=== PATIENT | female | born 1995 | race American Indian/Alaskan Native ===

== ENCOUNTER 2020-06-15 04:23 | Emergency (ER) | payer MEDICAID, OTHER ==
[2020-06-15] MEDS ORDERED: Sodium Chloride 0.9% 80 ML IV STA (04:45)
[2020-06-15] MEDS ORDERED: Iopamidol 612 MG/ML 100 ML Bottle IV STA (04:45)
--- NOTE | 2020-06-15 04:57 | EDM.PDOC ---
ED HPI GENERAL MEDICAL PROBLEM - General Chief Complaint: Back Pain or Injury Stated Complaint: ACCIDENT [facility]IA [facility] Time Seen by Provider: 06/15/20 04:23 Source of Information: Reports: Patient, EMS History Limitations: Reports: Intoxication - History of Present Illness INITIAL COMMENTS - FREE TEXT/NARRATIVE: patient presents via EMS from [place] due to fall from [facility]--initial ht reported as 16 feet then second report as 10-12 ft. she reportedly fell, tumbling off deck hitting concrete below. recieved call from local PD that state she was not a fall but pushed off deck. initially had LOC/had to be awakened by people on scene. upon initial EMS evaluation and during transportation had no sensation / movement below the waist but low back/lumbar pain was noted. she arrived with no back board or c-collar (per EMS c-collar was attempted but she refused to keep on). she has strong smell of alcohol - admits to drinking 1/2 case beer. she also had initial sternal pain for EMS. was crying/tearful (likely secondary to pain & intoxication) she is calming down after arrival to ER PMH--denies Meds--denies NKDA tob--denies but VAPES EtOH--yes Drugs--denies Onset: Today, Sudden - Related Data Allergies Allergy/AdvReac Type Severity Reaction Status Date / Time No Known Allergies Allergy Verified 06/15/20 05:25 Home Meds: Home Meds NK [No Known Home Meds] 06/15/20 [History] Review of Systems - Review of Systems Review Of Systems: Comprehensive ROS is negative, except as noted in HPI. Constitutional: Reports: No Symptoms Eyes: Reports: No Symptoms Ears: Reports: No Symptoms Nose: Reports: No Symptoms Mouth/Throat: Reports: No Symptoms Respiratory: Reports: No Symptoms Cardiovascular: Reports: No Symptoms GI/Abdominal: Reports: No Symptoms Genitourinary: Reports: No Symptoms Musculoskeletal: Reports: Back Pain, Other Skin: Reports: No Symptoms Neurological: Reports: Numbness, Paresthesia, Weakness, Other (intoxicated) Psychiatric: Reports: Other (intoxicated) ED EXAM, GENERAL - Physical Exam Exam: See Below Exam Limited By: Intoxication General Appearance: Alert, Anxious, Moderate Distress Eye Exam: Bilateral Eye: EOMI, Normal Inspection, PERRL Ears: Normal External Exam, Normal Canal, Hearing Grossly Normal, Normal TMs Nose: Normal Inspection, Normal Mucosa, No Blood Throat/Mouth: Normal Inspection, Normal Lips, Normal Teeth, Normal Oropharynx, No Airway Compromise Head: Atraumatic, Normocephalic Neck: Normal Inspection, Non-Tender, Other (c-collar placed with c-spine immobilization upon arrival to ER) Respiratory/Chest: No Respiratory Distress, Lungs Clear, Normal Breath Sounds, Chest Non-Tender Cardiovascular: Normal Peripheral Pulses, Regular Rate, Rhythm, No Edema, No Murmur Peripheral Pulses: 2+: Radial (L), Radial (R), Dorsalis Pedis (L), Dorsalis Pedis (R) GI/Abdominal: Normal Bowel Sounds, Soft, Non-Tender, Other (obese) (Female) Exam: Normal External Exam (noted during mir placement) Extremities: Normal Inspection, Non-Tender, No Pedal Edema, Normal Capillary Refill, Other (no palpatory tenderness to shoulder girdle/arms, palpatory pelvic tenderness/neg laxity, initial exam decreased/no sensation to lower extremities, no movement of feet when requested; repeat exam after initial exam with movement to B-LE, able to discern gross touch B-LE to bottom of feet; when taken to CT scanner was bending legs spontaneously at knees) Neurological: Alert, Oriented, Memory Loss Recent Events (she is unsure how accident/fall occurred per her report), Other (intoxicated) Psychiatric: Anxious, Tearful, Other (intoxicated) Skin Exam: Warm, Dry, Intact, Normal Color, No Rash Lymphatic: No Adenopathy Course - Vital Signs Text/Narrative:: 0410--EMS arrival, trauma code called and all at bedside 0416--initial vitals obtained, see trauma flow sheet/stable 0430--call placed to [facility] for trauma transfer, case d/w Dr Cedillo, ER who accepts for transfer ER-2-ER 0450--re-exam completed, patient now moving LE spontaniously, sensation is intact; she has bent legs at knees when mir placed. she states pain 0/10 when laying still but increases with any movement 0530--air care arrived, patient out of CT scanner, verbal consent for transfer to [place] has been obtained; will give ativan for anxiety and zofran for nausea. labs have been reviewed, noted for EtOH-261; CT scan reports pending at this time/disc sent with patient - Orders/Labs/Meds Orders: Active Orders 24 hr Category Date Time Status Cervical Spine wo Cont [CT] Stat Exams 06/15/20 04:29 Ordered Chest Abdomen Pelvis w Cont [CT] Stat Exams 06/15/20 04:29 Ordered Head wo Cont [CT] Stat Exams 06/15/20 04:36 Ordered Lumbar Spine wo Cont [CT] Stat Exams 06/15/20 04:29 Ordered Thoracic Spine w Cont [CT] Stat Exams 06/15/20 04:29 Ordered Labs: Laboratory Tests 06/15/20 06/15/20 06/15/20 Range/Units 04:32 04:32 04:32 WBC 7.9 (4.5-11.0) K/uL RBC 4.55 (3.30-5.50) M/uL Hgb 14.1 (12.0-15.0) g/dL Hct 41.2 (36.0-48.0) % MCV 91 (80-98) fL MCH 31 (27-31) pg MCHC 34 (32-36) % Plt Count 241 (150-400) K/uL Neut % (Auto) 65 (36-66) % Lymph % (Auto) 25 (24-44) % Pinal % (Auto) 8 H (2-6) % Eos % (Auto) 1 L (2-4) % Baso % (Auto) 1 (0-1) % PT 10.9 (9.5-12.0) sec INR 1.00 (0.80-1.20) Sodium 140 (140-148) mmol/L Potassium 4.5 (3.6-5.2) mmol/L Chloride 107 (100-108) mmol/L Carbon Dioxide 18 L (21-32) mmol/L Anion Gap 19.5 H (5.0-14.0) mmol/L BUN 7 (7-18) mg/dL Creatinine 0.6 (0.6-1.0) mg/dL Est Cr Clr Drug Dosing TNP Estimated GFR (MDRD) > 60 (>60) Glucose 114 H (74-106) mg/dL Calcium 8.3 L (8.5-10.1) mg/dL Total Bilirubin 0.2 (0.2-1.0) mg/dL AST 27 (15-37) U/L ALT 31 (12-78) U/L Alkaline Phosphatase 90 (46-116) U/L Troponin I 0.019 (0.000-0.056) ng/mL Total Protein 7.9 (6.4-8.2) g/dL Albumin 3.4 (3.4-5.0) g/dL Globulin 4.5 H (2.3-3.5) g/dL Albumin/Globulin Ratio 0.8 L (1.2-2.2) Urine HCG, Qual Urine Opiates Screen (NEGATIVE) Ur Oxycodone Screen (NEGATIVE) Urine Methadone Screen (NEGATIVE) Ur Propoxyphene Screen (NEGATIVE) Ur Barbiturates Screen (NEGATIVE) Ur Tricyclics Screen (NEGATIVE) Ur Phencyclidine Scrn (NEGATIVE) Ur Amphetamine Screen (NEGATIVE) U Methamphetamines Scrn (NEGATIVE) Urine MDMA Screen (NEGATIVE) U Benzodiazepines Scrn (NEGATIVE) U Cocaine Metab Screen (NEGATIVE) U Marijuana (THC) Screen (NEGATIVE) Ethyl Alcohol mg/dL 06/15/20 06/15/20 06/15/20 Range/Units 04:37 04:44 05:00 WBC (4.5-11.0) K/uL RBC (3.30-5.50) M/uL Hgb (12.0-15.0) g/dL Hct (36.0-48.0) % MCV (80-98) fL MCH (27-31) pg MCHC (32-36) % Plt Count (150-400) K/uL Neut % (Auto) (36-66) % Lymph % (Auto) (24-44) % Pinal % (Auto) (2-6) % Eos % (Auto) (2-4) % Baso % (Auto) (0-1) % PT (9.5-12.0) sec INR (0.80-1.20) Sodium (140-148) mmol/L Potassium (3.6-5.2) mmol/L Chloride (100-108) mmol/L Carbon Dioxide (21-32) mmol/L Anion Gap (5.0-14.0) mmol/L BUN (7-18) mg/dL Creatinine (0.6-1.0) mg/dL Est Cr Clr Drug Dosing Estimated GFR (MDRD) (>60) Glucose (74-106) mg/dL Calcium (8.5-10.1) mg/dL Total Bilirubin (0.2-1.0) mg/dL AST (15-37) U/L ALT (12-78) U/L Alkaline Phosphatase (46-116) U/L Troponin I (0.000-0.056) ng/mL Total Protein (6.4-8.2) g/dL Albumin (3.4-5.0) g/dL Globulin (2.3-3.5) g/dL Albumin/Globulin Ratio (1.2-2.2) Urine HCG, Qual Negative Urine Opiates Screen Negative (NEGATIVE) Ur Oxycodone Screen Negative (NEGATIVE) Urine Methadone Screen Negative (NEGATIVE) Ur Propoxyphene Screen Negative (NEGATIVE) Ur Barbiturates Screen Negative (NEGATIVE) Ur Tricyclics Screen Negative (NEGATIVE) Ur Phencyclidine Scrn Negative (NEGATIVE) Ur Amphetamine Screen Negative (NEGATIVE) U Methamphetamines Scrn Negative (NEGATIVE) Urine MDMA Screen Negative (NEGATIVE) U Benzodiazepines Scrn Negative (NEGATIVE) U Cocaine Metab Screen Negative (NEGATIVE) U Marijuana (THC) Screen Negative (NEGATIVE) Ethyl Alcohol 261 mg/dL Meds: Medications Discontinued Medications Generic Name Dose Route Start Last Admin Trade Name Freq PRN Reason Stop Dose Admin Sodium Chloride 80 mls @ 3 mls/sec 06/15/20 04:45 06/15/20 05:19 Normal Saline IV 06/15/20 04:46 3 mls/sec ASDIRECTED STA Administration Iopamidol 100 ml 06/15/20 04:45 06/15/20 05:19 Isovue-300 (61%) IV 06/15/20 04:46 100 ml . DIRECTED STA Administration Departure - Departure Time of Disposition: 05:34 Disposition: DC/Tfer to Acute Hospital 02 Condition: Good Clinical Impression: Trauma, Fall from height of greater than 3 feet, Low back pain, Alcohol intoxication - Discharge Information Referrals: PCP,None [Primary Care Provider] - Forms: ED Department Discharge - My Orders Last 24 Hours: My Active Orders 06/15/20 04:29 Cervical Spine wo Cont [CT] Stat Chest Abdomen Pelvis w Cont [CT] Stat Lumbar Spine wo Cont [CT] Stat Thoracic Spine w Cont [CT] Stat 06/15/20 04:36 Head wo Cont [CT] Stat - Assessment/Plan Last 24 Hours: My Active Orders 06/15/20 04:29 Cervical Spine wo Cont [CT] Stat Chest Abdomen Pelvis w Cont [CT] Stat Lumbar Spine wo Cont [CT] Stat Thoracic Spine w Cont [CT] Stat 06/15/20 04:36 Head wo Cont [CT] Stat
[2020-06-15] MEDS ORDERED: LORazepam 2 MG/ML SDV IVPUSH ONE (05:31)
[2020-06-15] MEDS ORDERED: Ondansetron 4 MG/2 ML SDV IVPUSH ONE (05:32)
--- NOTE | 2020-06-15 06:11 | CRLCT ---
INDICATION: Fell 10-12 feet, pain. TECHNIQUE: CT head without contrast. COMPARISON: None. FINDINGS: CSF spaces: Within normal limits for age. Brain parenchyma: The thurman-white differentiation is normal. No sign of mass, hemorrhage, or midline shift. Skull base and calvarium: Mucosal thickening and patchy opacification paranasal sinuses. The visualized orbits are grossly unremarkable. No skull fractures. IMPRESSION: Mild sinus disease, otherwise unremarkable noncontrast head CT. Please note that all CT scans at this facility use dose modulation, iterative reconstruction, and/or weight-based dosing when appropriate to reduce radiation dose to as low as reasonably achievable. Dictated by Jeevan Tomas MD @ Jun 15 2020 6:04AM Signed by Dr. Jeevan Tomas @ Jun 15 2020 6:10AM
--- NOTE | 2020-06-15 06:17 | CRLCT ---
INDICATION: Fall, 10-12 feet, pain. TECHNIQUE: CT cervical spine without contrast. COMPARISON: None FINDINGS: Vertebrae: Alignment is normal. There are no fractures or suspicious bony lesions. Discs and facet joints: Disc spaces and facets are within normal limits. Extraspinal findings: Prevertebral soft tissues, visualized airway, and visualized lungs are unremarkable. IMPRESSION: Unremarkable cervical spine CT. Please note that all CT scans at this facility use dose modulation, iterative reconstruction, and/or weight-based dosing when appropriate to reduce radiation dose to as low as reasonably achievable. Dictated by Jeevan Tomas MD @ Jun 15 2020 6:11AM Signed by Dr. Jeevan Tomas @ Jun 15 2020 6:15AM
--- NOTE | 2020-06-15 06:23 | CRLCT ---
INDICATION: Trauma, fell 10-12 feet TECHNIQUE: CT chest, abdomen and pelvis acquired with 100 cc Isovue-300 intravenous contrast. COMPARISON: None. FINDINGS: CHEST: Mediastinum and yani: Thyroid gland is unremarkable. Thoracic aorta is normal in caliber no pericardial effusion. High right paratracheal lymph node measures 10 millimeters. Lungs and pleura: No pleural effusion or pneumothorax minimal bibasilar discoid atelectasis. Chest wall and axilla: No mass or adenopathy. Bones: No suspicious bone lesions. Unremarkable for age. ABDOMEN AND PELVIS: Liver: Unremarkable. Gallbladder and bile ducts: Unremarkable. Pancreas: Unremarkable. Spleen: Unremarkable. Adrenal glands: Unremarkable. Kidneys: Unremarkable. GI tract: No dilated loops of large or small intestine. Unremarkable appendix. Vascular structures: Unremarkable. Pelvic Organs: Durand catheter in the bladder. Trace cul-de-sac free fluid. Collapsing right ovarian cyst. Bones: Fracture of the superior endplate of L1 with loss of height less than 25 percent anteriorly. No retropulsed bony fragments or discrete involvement of the posterior cortex. IMPRESSION: 1. Acute compression type fracture of the L1 vertebral body without involvement of the posterior cortex or retropulsed fragments. This is considered an AO spine A1 type fracture. 2. Otherwise essentially unremarkable chest, abdomen and pelvis CT as above. Please note that all CT scans at this facility use dose modulation, iterative reconstruction, and/or weight-based dosing when appropriate to reduce radiation dose to as low as reasonably achievable. Dictated by Jeevan Tomas MD @ Jun 15 2020 6:15AM Signed by Dr. Jeevan Tomas @ Jun 15 2020 6:23AM
--- NOTE | 2020-06-15 06:38 | CRLCT ---
INDICATION: Fall 10-12 feet TECHNIQUE: CT lumbar spine without contrast. COMPARISON: None FINDINGS: Vertebrae: There is a superior endplate fracture of the L1 vertebral body with loss of height anteriorly less than 25 percent. No definite involvement of the posterior cortex. No evidence of involvement of the adjacent pedicles. No retropulsed bony fragments. Discs and facet joints: Small central protrusion L4-5 mildly indenting the ventral thecal sac. IMPRESSION: Acute compression type fracture of the L1 vertebral body with loss of height less than 25 percent. This is an AO spine classification A1 type fracture. Please note that all CT scans at this facility use dose modulation, iterative reconstruction, and/or weight-based dosing when appropriate to reduce radiation dose to as low as reasonably achievable. Dictated by Jeevan Tomas MD @ Jun 15 2020 6:33AM Signed by Dr. Jeevan Tomas @ Jun 15 2020 6:37AM
--- NOTE | 2020-06-15 06:47 | CRLCT ---
INDICATION: Fall 10-12 feet TECHNIQUE: CT thoracic spine without contrast. COMPARISON: None FINDINGS: Vertebral alignment: Alignment is normal. Vertebrae: There are no fractures or suspicious bony lesions. Discs and facet joints: Disc spaces and facets are within normal limits. IMPRESSION: No evidence of thoracic spine fracture. Please see lumbar spine CT for comments about the L1 fracture. Please note that all CT scans at this facility use dose modulation, iterative reconstruction, and/or weight-based dosing when appropriate to reduce radiation dose to as low as reasonably achievable. Dictated by Jeevan Tomas MD @ Jun 15 2020 6:42AM Signed by Dr. Jeevan Tomas @ Jun 15 2020 6:45AM
== END 2020-06-15 05:45 ==
LOC: JP.ED 04:23
DX: M54.5 Low back pain (principal); F10.129 Alcohol abuse with intoxication, unspecified; Y90.8 Blood alcohol level of 240 mg/100 ml or more; W17.89XA Other fall from one level to another, initial encounter
CPT/HCPCS: 36415; 70450; 71260; 72125; 72129; 72131; 74177; 80053; 80305; 80307; 81025; 84484; 85025; 85610; 96374; 99285; J2060; J2405; Q9967